=== PATIENT | female | born 1995 | race Caucasian/White ===

== ENCOUNTER 2018-06-05 00:21 | Emergency (ER) | payer SELFPAY ==
[~2018-06-05] VITALS: Ht 165.1 cm; Wt 70.8 kg
[2018-06-05 00:22] VITALS: BP 134/69
[2018-06-05] MEDS ORDERED: TDAP [DIPH/PERTUSSIS/TET] 0.5 ML VIAL IM ONE ×2 (01:00→01:04)
== END 2018-06-05 01:24 | disposition home or self-care (01) ==
LOC: ER 00:25
DX: S51.811A Laceration without foreign body of right forearm, initial encounter (principal); W26.8XXA Contact with other sharp object(s), not elsewhere classified, initial encounter; Y93.89 Activity, other specified; Y92.89 Other specified places as the place of occurrence of the external cause; Y99.8 Other external cause status
CPT/HCPCS: 90715; A4606; A6402; Z7610

== ENCOUNTER 2018-09-29 20:27 | Emergency (ER) | payer OTHER ==
[~2018-09-29] VITALS: Ht 165.1 cm; Wt 69.9 kg
--- NOTE | 2018-09-29 20:45 | NUR ---
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 Pt is A, O/4, walks without assistance, breathing spontaneously to RA. Awaiting to be seen by .
[2018-09-29] MEDS ORDERED: KETOROLAC TROMETHAMINE INJ 30 MG/ML VIAL ONE ×2 (20:58→21:11)
[2018-09-29] MEDS ORDERED: ONDANSETRON HCL/PF 4 MG/2 ML VIAL ONE (20:58)
[2018-09-29] MEDS ORDERED: IV NS 0.9% 1,000 ML BAG IV ONE (21:00)
[2018-09-29] MEDS ORDERED: ONDANSETRON HCL/PF 4 MG/2 ML VIAL IVP ONE (21:00)
[2018-09-29] MEDS ORDERED: KETOROLAC TROMETHAMINE INJ 30 MG/ML VIAL IV ONE (21:00)
--- NOTE | 2018-09-29 21:10 | NUR ---
Pt unable to void yet
[2018-09-29 21:12] LABS: BASOPHILS % (AUTO) 0.2 % (0.0-2.0); EOSINOPHILS % (AUTO) 0.3 % (0.0-6.0); HEMATOCRIT 40 % (33-45); HEMOGLOBIN 13.6 g/dL (11.5-14.8); LYMPHOCYTES # (AUTO) 0.7 /CMM (0.8-4.8); LYMPHOCYTES % (AUTO) 8.2 % (20.0-44.0); MEAN CORPUSCULAR HGB CONC 34 g/dl (31.0-36.0); MEAN CORPUSCULAR VOLUME 90 fL (82-100); MONOCYTES # (AUTO) 0.3 /CMM (0.1-1.30); NEUTROPHILS # (AUTO) 7.5 /CMM (1.8-8.9); NEUTROPHILS % (AUTO) 87.3 % (43.0-81.0); PLATELET COUNT (AUTO) 286 /CMM (150-450); RED BLOOD CELL COUNT(AUTO) 4.43 MIL/uL (4.0-5.2); WHITE BLOOD COUNT (AUTO) 8.6 K/uL (4.3-11.0)
[2018-09-29 21:18] LABS: CALCIUM, SERUM 8.7 mg/dL (8.5-10.1); CREATININE 0.7 mg/dL (0.6-1.3)
[2018-09-29 21:24] LABS: ALBUMIN 3.9 g/dL (3.4-5.0); BILIRUBIN,DIRECT 0.1 mg/dL (0.0-0.2); BILIRUBIN,TOTAL 0.3 mg/dL (0.2-1.0); TOTAL PROTEIN, SERUM 7.8 g/dL (6.4-8.2)
--- NOTE | 2018-09-29 21:27 | NUR ---
Pt ambulated to the BR
--- NOTE | 2018-09-29 21:30 | NUR ---
urine sample collected and sent to lab
[2018-09-29 21:43] LABS: APPEARANCE,URINE Clear (CLEAR); BILIRUBIN,URINE Negative (NEGATIVE); BLOOD, URINE Negative Ery/uL (NEGATIVE); COLOR,URINE Yellow (YELLOW); KETONES,URINE Negative (NEGATIVE); LEUKOCYTE ESTERASE ,URINE Negative (NEGATIVE); NITRITE, URINE Negative (NEGATIVE); PH,URINE 7.5 (5.0-8.0); PROTEIN,URINE Negative (NEGATIVE); UGLUCOSE Negative (NEGATIVE)
--- NOTE | 2018-09-29 22:10 | NUR ---
Pt resting in bed, states she feels better but still feels "uncomfortable in my stomach."
--- NOTE | 2018-09-29 22:30 | NUR ---
Patient discharged to home in stable condition. Written and verbal after care instructions and prescription given. Patient verbalizes understanding of instruction.IV removed. Catheter intact and site benign. Pressure and 4x4 applied to site. No bleeding noted. Pt ambulatory with a steady gait
[2018-09-29 22:49] VITALS: BP 137/89
== END 2018-09-29 22:52 | disposition home or self-care (01) ==
LOC: ER 20:35
DX: E86.0 Dehydration (principal); R11.2 Nausea with vomiting, unspecified; R19.7 Diarrhea, unspecified; R10.13 Epigastric pain; G89.29 Other chronic pain
CPT/HCPCS: 36415; 80048; 80076; 81001; 83690; 84703; 85025; 96361; 96374; 96375; 99283; A4606; J1885; J2405; J7030; Z7610; 81000-TC

== ENCOUNTER 2019-02-18 23:58 | Emergency (ER) | payer MEDICAID, OTHER ==
[~2019-02-18] VITALS: Ht 165.1 cm; Wt 68.0 kg
[2019-02-19] MEDS ORDERED: MAG HYDROX/AL HYDROX/SIMETH 30 ML UDC PO ONE (00:30)
[2019-02-19] MEDS ORDERED: ONDANSETRON HCL/PF 4 MG/2 ML VIAL IVP ONE (00:30)
[2019-02-19] MEDS ORDERED: IV NS 0.9% 1,000 ML BAG IV ONE (00:30)
[2019-02-19] MEDS ORDERED: KETOROLAC TROMETHAMINE INJ 30 MG/ML VIAL IV ONE (00:30)
[2019-02-19] MEDS ORDERED: LIDOCAINE VISCOUS 2% UD 15 ML UDC MM ONE (00:30)
[2019-02-19 00:38] LABS: BASOPHILS # (AUTO) 0.1 /CMM (0.0-0.2); BASOPHILS % (AUTO) 0.5 % (0.0-2.0); EOSINOPHILS % (AUTO) 1.3 % (0.0-6.0); HEMATOCRIT 37 % (33-45); HEMOGLOBIN 12.6 g/dL (11.5-14.8); LYMPHOCYTES # (AUTO) 2.4 /CMM (0.8-4.8); LYMPHOCYTES % (AUTO) 18.1 % (20.0-44.0); MEAN CORPUSCULAR HGB CONC 34 g/dl (31.0-36.0); MEAN CORPUSCULAR VOLUME 88 fL (82-100); MONOCYTES # (AUTO) 0.7 /CMM (0.1-1.30); MONOCYTES % (AUTO) 5.4 % (2.0-12.0); NEUTROPHILS # (AUTO) 10.1 /CMM (1.8-8.9); NEUTROPHILS % (AUTO) 74.7 % (43.0-81.0); PLATELET COUNT (AUTO) 310 /CMM (150-450); RED BLOOD CELL COUNT(AUTO) 4.18 MIL/uL (4.0-5.2); WHITE BLOOD COUNT (AUTO) 13.5 K/uL (4.3-11.0)
[2019-02-19 00:54] LABS: CALCIUM, SERUM 8.6 mg/dL (8.5-10.1); CREATININE 0.7 mg/dL (0.6-1.3); POTASSIUM 3.6 mmol/L (3.5-5.1)
[2019-02-19] MEDS ORDERED: MAG HYDROX/AL HYDROX/SIMETH 30 ML UDC ONE (00:54)
[2019-02-19] MEDS ORDERED: KETOROLAC TROMETHAMINE INJ 30 MG/ML VIAL ONE (00:54)
[2019-02-19] MEDS ORDERED: ONDANSETRON HCL/PF 4 MG/2 ML VIAL ONE (00:55)
[2019-02-19] MEDS ORDERED: LIDOCAINE VISCOUS 2% UD 15 ML UDC ONE (00:57)
[2019-02-19 00:59] LABS: APPEARANCE,URINE Clear (CLEAR); BILIRUBIN,URINE Negative (NEGATIVE); BLOOD, URINE Negative Ery/uL (NEGATIVE); COLOR,URINE Yellow (YELLOW); KETONES,URINE Negative (NEGATIVE); LEUKOCYTE ESTERASE ,URINE Negative (NEGATIVE); NITRITE, URINE Negative (NEGATIVE); PH,URINE 6.5 (5.0-8.0); PROTEIN,URINE Trace mg/dl (NEGATIVE); UGLUCOSE Negative (NEGATIVE)
[2019-02-19 01:05] LABS: ALBUMIN 3.5 g/dL (3.4-5.0); BILIRUBIN,DIRECT 0.1 mg/dL (0.0-0.2); BILIRUBIN,TOTAL 0.3 mg/dL (0.2-1.0); TOTAL PROTEIN, SERUM 7.6 g/dL (6.4-8.2)
--- NOTE | 2019-02-19 01:05 | NUR ---
RN NOTES PATIENT BIBBOYFRIEND WITH C/O NAUSEA FOR 1 WEEK. PATIENT DENIES ANY VOMITING, DIARRHEA, SOB. PATIENT IS ON RA W/O ANY RESPIRATORY DISTRESS.. PATIENT C/O SORE THROAT FOR 1 DAY.PATIENT IS STABLE, V/S ARE WNL. AWAITING FOR MD BALLESTEROS.
[2019-02-19 01:11] LABS: BACTERIA,URINE None seen /HPF (None Seen); RBC,URINE 0-2 /HPF (0-2); SQUAMOUS EPITHELIAL CELL,UR Few /HPF (None Seen); WBC,URINE 0-2 /HPF (0-3)
--- NOTE | 2019-02-19 02:10 | NUR ---
IN INFUSION OF 0.9%NS 1000ML HAS BEEN FINISHED AT 0210.
[2019-02-19 02:41] VITALS: BP 110/61
== END 2019-02-19 02:58 | disposition home or self-care (01) ==
LOC: ER 02-19
DX: K21.9 Gastro-esophageal reflux disease without esophagitis (principal)
CPT/HCPCS: 36415; 80048; 80076; 81001; 83690; 84703; 85025; 96374; 96375; 99283; J1885; J2405; J7030; 81000-TC

== ENCOUNTER 2019-05-22 21:22 | Emergency (ER) | payer OTHER ==
[~2019-05-22] VITALS: Ht 165.1 cm; Wt 69.9 kg
--- NOTE | 2019-05-22 23:29 | NUR ---
BIBSELF FROM HOME. TO ER BED 10. AMBULATORY. AAOX4. NAD NOTED, BRREATHING EVEN NAD UNLABORED. C/O CONSTANT HEADACHE X 1 WEEK IN THE LEFT SIDE. 9/10 THROBBING AND SHARP WITH OCCATIONAL JOLTS. PT REPORT TAKING TYLENOL BUT NOT WORKING. NO NEURO DEFICIT NOTED. MD AT BEDSIDE FOR EVAL.
[2019-05-23 00:25] LABS: APPEARANCE,URINE Slightly Cloudy (CLEAR); BILIRUBIN,URINE Negative (NEGATIVE); BLOOD, URINE Negative Ery/uL (NEGATIVE); COLOR,URINE Yellow (YELLOW); KETONES,URINE Trace (NEGATIVE); LEUKOCYTE ESTERASE ,URINE Negative (NEGATIVE); NITRITE, URINE Positive (NEGATIVE); PH,URINE 6.5 (5.0-8.0); PROTEIN,URINE Negative (NEGATIVE); UGLUCOSE Negative (NEGATIVE)
[2019-05-23] MEDS ORDERED: IV NS 0.9% 1,000 ML BAG IV ONE (00:30)
[2019-05-23] MEDS ORDERED: METOCLOPRAMIDE HCL 10 MG TABLET ONE (00:30)
[2019-05-23] MEDS ORDERED: METOCLOPRAMIDE HCL 10 MG/2 ML VIAL IV ONE (00:30)
[2019-05-23] MEDS ORDERED: IBUPROFEN 600 MG TABLET PO ONE ×2 (00:30→01:00)
[2019-05-23] MEDS ORDERED: ACETAMINOPHEN ES 500 MG TABLET ONE (00:30)
--- NOTE | 2019-05-23 00:33 | NUR ---
PT REFUSED TO HAVE MEDICATION THROUGH IV. MADE AWARE AND APPROVED REGLAN TO BE GIVEN BY MOUTH. ALSO RECEIVED VERBAL ORDER TO GIVE TYLENOL 100MG AND MOTRIN 600MG PO X 1. ORDER NOTED AND CARRIED OUT
[2019-05-23 00:59] LABS: BACTERIA,URINE Moderate /HPF (None Seen); SQUAMOUS EPITHELIAL CELL,UR Moderate /HPF (None Seen)
[2019-05-23] MEDS ORDERED: ACETAMINOPHEN ES 500 MG TABLET PO ONE (01:00)
[2019-05-23 02:11] VITALS: BP 109/65
--- NOTE | 2019-05-23 02:11 | NUR ---
Patient discharged to home in stable condition. Written and verbal after care instructions given. Patient verbalizes understanding of instruction. Pt ambulatory with a steady gait
== END 2019-05-23 02:12 | disposition home or self-care (01) ==
LOC: ER 21:26
DX: R51 Headache (principal); N39.0 Urinary tract infection, site not specified
CPT/HCPCS: 81001; 84703; 87077; 87086; 87186; 96374; 99283; J8597; 81000-TC

== ENCOUNTER 2019-08-19 21:56 | Emergency (ER) | payer OTHER ==
[~2019-08-19] VITALS: Ht 165.1 cm; Wt 65.8 kg
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
--- NOTE | 2019-08-19 22:23 | NUR ---
SEEN AND EXAMINED BY
--- NOTE | 2019-08-19 22:35 | NUR ---
COLLECTED URINE FOR PREGNACY TEST ORDERED.
[2019-08-20 00:20] VITALS: BP 116/62
--- NOTE | 2019-08-20 00:20 | NUR ---
DISCHARGE INSTRUCTIONS GIVEN TO PATIENT AND FAMILY, VERBALIZED UNDERSTANDING. PATIENT DISCHARGE AMBULATORY ACCOMPANIED BY FAMILY.
== END 2019-08-20 00:20 | disposition home or self-care (01) ==
LOC: ER 21:57
DX: S20.212A Contusion of left front wall of thorax, initial encounter (principal); V43.62XA Car passenger injured in collision with other type car in traffic accident, initial encounter; Y93.89 Activity, other specified; Y92.413 State road as the place of occurrence of the external cause; Y99.8 Other external cause status
CPT/HCPCS: 71045-TC; 84703-TC

== ENCOUNTER 2020-05-07 21:11 | Emergency (ER) | payer OTHER, SELFPAY ==
[~2020-05-07] VITALS: Ht 165.1 cm; Wt 65.8 kg
[2020-05-07 21:23] VITALS: BP 95/63
--- NOTE | 2020-05-07 23:22 | NUR ---
Patient discharged to home in stable condition. Written and verbal after care instructions given. Patient verbalizes understanding of instruction. Pt ambulatory with a steady gait
--- NOTE | 2020-05-09 03:28 | NUR ---
PT COVID POSITIVE
--- NOTE | 2020-05-09 07:07 | NUR ---
patient notified of covid result.
== END 2020-05-07 23:24 | disposition home or self-care (01) ==
LOC: ER 21:14
DX: U07.1 COVID-19 (principal); R42 Dizziness and giddiness
CPT/HCPCS: 71045; 99284; C9803; U0003

== ENCOUNTER 2020-10-29 23:46 | Emergency (ER) | payer MEDICAID, OTHER ==
[~2020-10-29] VITALS: Ht 165.1 cm; Wt 65.8 kg
[2020-10-30 00:22] VITALS: BP 125/79
== END 2020-10-30 00:44 | disposition home or self-care (01) ==
LOC: ER 23:49
DX: H66.91 Otitis media, unspecified, right ear (principal)

== ENCOUNTER 2021-02-16 21:43 | Emergency (ER) | payer MEDICAID ==
[~2021-02-16] VITALS: Ht 165.1 cm; Wt 65.8 kg
--- NOTE | 2021-02-16 21:45 | NUR ---
PT AAOX4, AMBULATORY WITH STEADY GAIT. BIBSELF C/O NAUSEA, DENIES ANY VOMITING X1 WEEK. PT PLACED IN ER BED 10 ON MONITOR AND PULE OX. VSS. AWAITING ER MD FOR EVAL AND ORDERS.
[2021-02-16] MEDS ORDERED: ONDANSETRON 4 MG TAB.RAPDIS ONE (22:22)
[2021-02-16] MEDS ORDERED: PANTOPRAZOLE 40 MG TABLET.DR PO ONE ×2 (22:22→22:30)
[2021-02-16] MEDS ORDERED: ONDANSETRON 4 MG TAB.RAPDIS SL ONE (22:30)
[2021-02-16] MEDS ORDERED: ONDA4TAB5 PO (23:16)
[2021-02-16] MEDS ORDERED: OMEP20CA15 PO (23:16)
--- NOTE | 2021-02-16 23:26 | NUR ---
Patient discharged to home in stable condition. Written and verbal after care instructions given. Patient verbalizes understanding of instruction. Ms Cornejo ambulatory with a steady gait walk steadily to Exit
[2021-02-16 23:28] VITALS: BP 105/61
== END 2021-02-16 23:29 | disposition home or self-care (01) ==
LOC: ER 21:45
DX: R11.0 Nausea (principal); K21.9 Gastro-esophageal reflux disease without esophagitis; Z79.899 Other long term (current) drug therapy
CPT/HCPCS: 84703; 99283; Q0162

== ENCOUNTER 2021-03-12 04:11 | Emergency (ER) | payer MEDICAID, OTHER ==
[~2021-03-12] VITALS: Ht 165.1 cm; Wt 65.8 kg
[~2021-03-12 04:11] MED LIST: OMEP20CA15 PO; ONDA4TAB5 PO
[2021-03-12 04:30] VITALS: BP 117/82
[2021-03-12 05:36] LABS: BILIRUBIN,URINE NEGATIVE (NEGATIVE); COLOR,URINE YELLOW (YELLOW); LEUKOCYTE ESTERASE ,URINE MODERATE (NEGATIVE); NITRITE, URINE NEGATIVE (NEGATIVE); PROTEIN,URINE NEGATIVE (NEGATIVE); UGLUCOSE NEGATIVE (NEGATIVE); UROBILINOGEN,URINE 0.2 EU/dL (0.2)
[2021-03-12 05:43] LABS: BACTERIA,URINE 2+ /HPF (None Seen); SQUAMOUS EPITHELIAL CELL,UR Moderate /HPF (None Seen); URINE AMORPHOUS URATE Few /HPF (None Seen); WBC,URINE TOO NUMEROUS TO COUN /HPF (0-3)
[2021-03-12 05:44] LABS: MUCUS,URINE Few /LPF (None Seen)
[2021-03-12] MEDS ORDERED: CEPH500C2 PO (05:50)
[2021-03-12] MEDS ORDERED: PHEN-705 PO (05:50)
== END 2021-03-12 05:56 | disposition home or self-care (01) ==
LOC: ER 04:13
DX: N39.0 Urinary tract infection, site not specified (principal); Z79.899 Other long term (current) drug therapy
CPT/HCPCS: 81001; 84703-TC; 87086-TC; 87186-TC

== ENCOUNTER 2021-08-29 19:58 | Emergency (ER) | payer OTHER ==
[~2021-08-29] VITALS: Ht 165.1 cm; Wt 68.0 kg
[~2021-08-29 19:58] MED LIST changes: +CEPH500C2 PO; +PHEN-705 PO
[2021-08-29 20:31] VITALS: BP 102/67
[2021-08-29] MEDS ORDERED: IBUPROFEN 600 MG TABLET ONE (20:51)
[2021-08-29] MEDS ORDERED: IBUPROFEN 600 MG TABLET PO ONE (21:00)
[2021-08-29] MEDS ORDERED: IBUP-1955 PO (22:02)
--- NOTE | 2021-08-29 22:08 | NUR ---
Patient discharged to home in stable condition. Written and verbal after care instructions given. Patient verbalizes understanding of instruction. RX GIVEN
== END 2021-08-29 22:09 | disposition home or self-care (01) ==
LOC: ER 20:08
DX: M25.562 Pain in left knee (principal); Z79.899 Other long term (current) drug therapy
CPT/HCPCS: 73564-TC